=== PATIENT | male | born 1970 | race Caucasian/White ===

== ENCOUNTER 2017-12-13 12:56 | Emergency (ER) | payer OTHER ==
[~2017-12-13] VITALS: Ht 175.3 cm; Wt 92.5 kg
[2017-12-13 13:04] VITALS: TEMP 37.7; Ht 175.3 cm; Wt 92.5 kg
[2017-12-13 13:09] VITALS: O2SAT 97
[2017-12-13] MEDS ORDERED: SODIUM CHLORIDE 0.9% 1000ML 1,000 ML IV STA (13:24)
[2017-12-13] MEDS ORDERED: DiphenhydrAMINE HCL 50 MG/ML VIAL IV STA (13:24)
[2017-12-13] MEDS ORDERED: PROCHLORPERAZINE 5 MG/ML 2 ML VIAL IV STA (13:24)
[2017-12-13] MEDS ORDERED: ACETAMINOPHEN 500 MG TAB PO STA (13:24)
--- NOTE | 2017-12-13 13:26 | EMERGENCY ROOM VISIT NOTE ---
History Report prepared by Tequila: Rossy Tobar Under the Supervision of: Dr. Christ Lake M.D. First contact with patient: 13:07 Chief Complaint: ILLNESS Stated Complaint: FEVER, SOB, SHAKINESS History of Present Illness The patient is a 47 year old white male with a past medical history of seizures who presents to the ED with a cc of an illness beginning at 1100 today. Positive neck pain, headache shortness of breath, nausea. Negative urinary symptoms. The patient reports that he was camping with his family and was getting ready to go for a bike ride when his symptoms came on suddenly. He states that he was unable to stand or talk and that he was cold and shaking. He reports that he does have a history of seizures but that he has not had a seizure in 20 years and that when he does get them he passes out. He denies any recent tick bites or changes in lifestyle. He also denies recent falls or injuries. The patient states that he has a history of a cholecystectomy. He reports that he drinks alcohol and chews tobacco but denies drug use. Source of History: patient Onset: 1100 today Position: other (generalized ) Quality: other (illness) Associated Symptoms: + headache, + neck pain, + SOB, + nausea, No urinary symptoms Review of Systems See HPI for pertinent positives and negatives. A total of ten systems were reviewed and were otherwise negative. Past Medical & Surgical Medical Problems: (1) Seizure Surgical Problems: (1) Hx of cholecystectomy Family History No pertinent family history Social History Smoking Status: Never Smoker Smokeless Tobacco Use: Yes Alcohol Use: occasionally Marital Status: single Current/Historical Medications Scheduled Fluoxetine (Prozac), 1 DOSE PO DAILY Lamotrigine (Lamictal), 150 MG PO DAILY Allergies Coded Allergies: Propofol (Unverified Adverse Reaction, Unknown, HEART RACES, 12/13/17) Physical Exam Vital Signs Date Time Temp Pulse Resp B/P (MAP) Pulse Ox O2 Delivery O2 Flow Rate FiO2 12/13/17 15:30 92 18 102/62 98 12/13/17 13:58 95 19 135/80 94 Room Air 12/13/17 13:34 100 12/13/17 13:09 97 Room Air 12/13/17 13:04 37.7 107 27 147/86 97 Room Air Physical Exam GENERAL: Awake, alert, mildly ill- appearing, NAD HENT: Normocephalic, atraumatic. EYES: Normal conjunctiva. Sclera non-icteric. Mild anisocoria right greater than left. Equally reactive to light. NECK: Supple. No nuchal rigidity. FROM. RESPIRATORY: CTAB, no rhonchi, wheezing, crackles CARDIAC: RRR, no MRG ABDOMEN: Soft, NTND, BS+ MSK: No chest wall TTP, no LE edema, right pericervical tenderness to palpation , full range of motion. Negative kernig's sign. Negative Brudzinski's sign NEURO: CN 2-12 intact, 5/5 upper and lower extremity strength, no dysmetria, no drift, good finger to nose, no sensory deficits. Finger count grossly normal. SKIN: No rash or jaundice noted. Medical Decision & Procedures ER Provider Diagnostic Interpretation: Radiology results as stated below per my review and radiologist interpretation: NONCONTRAST HEAD CT, HEAD CTA HISTORY: Headache. Neck pain. TECHNIQUE: Multiaxial CT images of the head were performed both before and after the intravenous administration of contrast to evaluate the major cerebral vessels. Maximum intensity projection images were also obtained. A dose lowering technique was utilized adhering to the principles of ALARA. COMPARISON: None. FINDINGS: There is no mass, hematoma, midline shift, or acute infarct. Visualized intracranial internal carotid arteries, distal vertebral arteries, and basilar artery are widely patent. There is no significant stenosis, occlusion, or aneurysm seen within the bilateral ACAs, MCAs, or chlorinator operator. The calvarium and skull base are intact. The paranasal sinuses and mastoid air cells are clear. IMPRESSION: No acute intracranial abnormality. No significant stenosis, occlusion, or aneurysm within the [place] of [place]. Electronically signed by: Gerald Mills M.D. 12/13/2017 2:37 PM Dictated Date/Time: 12/13/2017 2:[address], HEAD CTA HISTORY: Headache. Neck pain. TECHNIQUE: Multiaxial CT images of the head were performed both before and after the intravenous administration of contrast to evaluate the major cerebral vessels. Maximum intensity projection images were also obtained. A dose lowering technique was utilized adhering to the principles of ALARA. COMPARISON: None. FINDINGS: There is no mass, hematoma, midline shift, or acute infarct. Visualized intracranial internal carotid arteries, distal vertebral arteries, and basilar artery are widely patent. There is no significant stenosis, occlusion, or aneurysm seen within the bilateral ACAs, MCAs, or chlorinator operator. The calvarium and skull base are intact. The paranasal sinuses and mastoid air cells are clear. IMPRESSION: No acute intracranial abnormality. No significant stenosis, occlusion, or aneurysm within the [place] of [place]. Electronically signed by: Gerald Mills M.D. 12/13/2017 2:37 PM Dictated Date/Time: 12/13/2017 2:29 PM NECK CTA HISTORY: stiff neck, BELL, anisocoria R > L reactive to light TECHNIQUE: Multiaxial CT images of the neck were performed following the intravenous administration of contrast to evaluate the major cervical vessels. Maximum intensity projection images were also obtained. All measurements were calculated based on NASCET criteria. A dose lowering technique was utilized adhering to the principles of ALARA. COMPARISON STUDY: None. FINDINGS: The aortic arch and proximal great vessels are widely patent. There is no significant stenosis, occlusion, or dissection identified within the bilateral common carotid, internal carotid, or vertebral arteries. Moderate to space narrowing at C5-C6 with small endplate osteophytes. There is also mild disc space narrowing at C3-C4. IMPRESSION: No significant stenosis, occlusion, or dissection identified within the carotid or vertebral arteries. Electronically signed by: Gerald Mills M.D. 12/13/2017 2:40 PM Dictated Date/Time: 12/13/2017 2:37 PM Laboratory Results 12/13/17 12:42 Red Blood Count 4.93, Mean Corpuscular Volume 93.5, Mean Corpuscular Hemoglobin 32.7, Mean Corpuscular Hemoglobin Concent 34.9, Mean Platelet Volume 9.4, Neutrophils (%) (Auto) 91.0, Lymphocytes (%) (Auto) 7.9, Monocytes (%) (Auto) 0.2, Eosinophils (%) (Auto) 0.2, Basophils (%) (Auto) 0.2, Neutrophils # (Auto) 5.31, Lymphocytes # (Auto) 0.46, Monocytes # (Auto) 0.01, Eosinophils # (Auto) 0.01, Basophils # (Auto) 0.01 12/13/17 12:42 Test 12/13/17 12:42 12/13/17 13:39 12/13/17 14:45 White Blood Count 5.83 K/uL (4.8-10.8) Red Blood Count 4.93 M/uL (4.7-6.1) Hemoglobin 16.1 g/dL (14.0-18.0) Hematocrit 46.1 % (42-52) Mean Corpuscular Volume 93.5 fL (80-100) Mean Corpuscular Hemoglobin 32.7 pg (25-34) Mean Corpuscular Hemoglobin Concent 34.9 g/dl (32-36) Platelet Count 161 K/uL (130-400) Mean Platelet Volume 9.4 fL (7.4-10.4) Neutrophils (%) (Auto) 91.0 % Lymphocytes (%) (Auto) 7.9 % Monocytes (%) (Auto) 0.2 % Eosinophils (%) (Auto) 0.2 % Basophils (%) (Auto) 0.2 % Neutrophils # (Auto) 5.31 K/uL (1.4-6.5) Lymphocytes # (Auto) 0.46 K/uL (1.2-3.4) Monocytes # (Auto) 0.01 K/uL (0.11-0.59) Eosinophils # (Auto) 0.01 K/uL (0-0.5) Basophils # (Auto) 0.01 K/uL (0-0.2) RDW Standard Deviation 44.0 fL (36.4-46.3) RDW Coefficient of Variation 12.8 % (11.5-14.5) Immature Granulocyte % (Auto) 0.5 % Immature Granulocyte # (Auto) 0.03 K/uL (0.00-0.02) Prothrombin Time 10.4 SECONDS (9.0-12.0) Prothromb Time International Ratio 1.0 (0.9-1.1) Activated Partial Thromboplast Time 24.2 SECONDS (21.0-31.0) Partial Thromboplastin Ratio 0.9 Est Creatinine Clear Calc Drug Dose 79.7 ml/min Estimated GFR () 77.1 Estimated GFR (Non- 66.5 BUN/Creatinine Ratio 6.4 (10-20) Calcium Level 8.2 mg/dl (8.5-10.1) Magnesium Level 1.8 mg/dl (1.8-2.4) Lyme Disease IgG Antibody NEG (NEG) Lyme Disease IgM Antibody NEG (NEG) Bedside Hemoglobin 15.3 g/dl (14.0-18.0) Bedside Hematocrit 45 % (42-52) Bedside Sodium 137 mEq/L (135-144) Bedside Potassium 3.4 mEq/L (3.3-5.0) Bedside Chloride 102 mEq/L (101-112) Bedside Total CO2 16 mEq/l (24-31) Anion Gap 22.0 mmol/L (16-25) Bedside Blood Urea Nitrogen 9 mg/dl (7-18) Bedside Creatinine 1.2 mg/dl (0.6-1.3) Bedside Glucose (other) 108 mg/dl (70-99) Bedside Ionized Calcium ([place]) 1.08 mmol/l (1.12-1.32) Urine Color YELLOW Urine Appearance CLEAR (CLEAR) Urine pH 7.0 (4.5-7.5) Urine Specific [place] 1.017 (1.000-1.030) Urine Protein NEG (NEG) Urine Glucose (UA) NEG (NEG) Urine Ketones NEG (NEG) Urine Occult Blood NEG (NEG) Urine Nitrite NEG (NEG) Urine Bilirubin NEG (NEG) Urine Urobilinogen NEG (NEG) Urine Leukocyte Esterase NEG (NEG) Urine WBC (Auto) 0 /hpf (0-5) Urine RBC (Auto) 0-4 /hpf (0-4) Urine Hyaline Casts (Auto) 0 /lpf (0-5) Urine Epithelial Cells (Auto) 0-5 /lpf (0-5) Urine Bacteria (Auto) NEG (NEG) Laboratory results reviewed by me Medications Administered Medications (Trade) Dose Ordered Sig/Vikas Route Start Time Stop Time Status Last Admin Dose Admin Prochlorperazine Edisylate (Compazine Inj) 10 mg NOW STAT IV 12/13/17 13:24 12/13/17 13:27 DC 12/13/17 14:01 10 MG Acetaminophen (Tylenol Tab) 1,000 mg NOW STAT PO 12/13/17 13:24 12/13/17 13:27 DC 12/13/17 14:01 1,000 MG Diphenhydramine HCl (Benadryl Inj) 50 mg NOW STAT IV 12/13/17 13:24 12/13/17 13:27 DC 12/13/17 14:00 50 MG Sodium Chloride 1,000 ml @ 999 mls/hr Q1H1M STAT IV 12/13/17 13:24 12/13/17 14:24 DC 12/13/17 13:24 999 MLS/HR Sodium Chloride 500 ml @ 999 mls/hr Q31M STAT IV 12/13/17 14:42 12/13/17 15:12 DC 12/13/17 14:52 999 MLS/HR ED Course 1317: The patient was evaluated in room C5. A complete history and physical exam was performed. 1440: I checked on the patient and his symptoms have resolved. 1505: I reevaluated the patient. Discussed results and discharge instructions: He verbalized understanding and agreement. The patient is ready for discharge. Medical Decision Nursing notes reviewed. Ancillary studies and prior records reviewed. The patient is a 47 year old white male with a past medical history of seizures who presents to the ED with a cc of an illness beginning at 1100 today. Differential diagnosis: Etiologies such as migraine headache, meningitis, sinusitis, CO exposure, ICH, SAH, infection, tumor, headache, sinus thrombosis, arterial dissection, as well as others were entertained. Patient was seen and evaluated the bedside. Patient did have some Reiger's as well as feeling like he is in headache and stiff neck. On exam the patient did complain of mild headache but had a nonfocal neurologic exam. Of note though the patient did have some mild anisocoria right greater than left. His pupils were equally reactive to light. The patient did not really have true meningismus. The patient had a negative Brudzinski's and Kernig signs. Patient denies any blood thinning medications and denies any trauma. No recent tick bites with the patient has been camping. Patient did blood work completed along with CT brain, CTA of the head and neck and some medications for symptom control. Of note the patient was reported to have a fever in the ambulance. Patient was given some antipyretics prior to arrival. Patient has not been febrile here. The patient is feeling much improved after his headache treatment. The patient did have a negative CT brain and CT of the head neck. Given this and the relatively short time course I do not believe that the patient lack of meningismus. Less likely bacterial meningitis. Patient was given strict follow-up, discharge, and return precautions. All questions were answered. Patient was deemed suitable for outpatient follow-up at this time. Patient agreed with the plan of care and was safely discharged home. Medication Reconcilliation Current Medication List: was personally reviewed by me Blood Pressure Screening Patient's blood pressure: Elevated blood pressure Blood pressure disposition: Elevated BP felt to be situational Impression Primary Impression: Viral illness Additional Impression: Fever Scribe Attestation The scribe's documentation has been prepared under my direction and personally reviewed by me in its entirety. I confirm that the note above accurately reflects all work, treatment, procedures, and medical decision making performed by me. Departure Information Dispostion Home / Self-Care Forms HOME CARE DOCUMENTATION FORM, IMPORTANT VISIT INFORMATION, WORK / SCHOOL INSTRUCTIONS Patient Instructions ED Fever Control, My [facility] Additional Instructions Please return to the emergency department if you have worsening or recurrent symptoms not amenable to at-home treatment. Please call for a follow-up appointment with her primary care physician. Please take your medications as prescribed. If you have other concerns and/or complaints please feel free to also call your primary care physician's office or return the ED for further evaluation, management, and treatment. You may take 800 mg Ibuprofen every 6 hours as needed for pain/fever with food unless told by your physician not to take NSAIDs. You may take tylenol 1000 mg every 6 hours as needed for pain/fever unless told by your physician to not take it or have liver problems. You may take motrin and tylenol separately or at the same time. Take your medications as prescribed. You have been examined and treated today on an emergency basis only. This is not a substitute for, or an effort to provide, complete comprehensive medical care. It is impossible to recognize and treat all injuries or illnesses in a single emergency department visit. It is therefore important that you follow up closely with [facility], your PCP, and/or your specialist(s). Call as soon as possible for an appointment. Thank you for your time and consideration. I look forward to speaking with you again soon. Please don't hesitate to call us if you have any questions. Problem Qualifiers Additional Impression: Fever Fever type: unspecified Qualified Codes: R50.9 - Fever, unspecified
[2017-12-13 13:40] LABS: BASO % 0.2 %; BASO ABS # 0.01 K/uL (0-0.2); EOS % 0.2 %; EOS ABS # 0.01 K/uL (0-0.5); HEMATOCRIT 46.1 % (42-52); HEMOGLOBIN 16.1 g/dL (14.0-18.0); IG# 0.03 K/uL (0.00-0.02); LYMPH % 7.9 %; LYMPH ABS # 0.46 K/uL (1.2-3.4); MEAN CELL VOLUME 93.5 fL (80-100); MEAN CORPUSCULAR HEMOGLOBIN 32.7 pg (25-34); MEAN CORPUSCULAR HGB CONC 34.9 g/dl (32-36); MEAN PLATELET VOLUME 9.4 fL (7.4-10.4); MONO % 0.2 %; MONO ABS # 0.01 K/uL (0.11-0.59); NEUT ABS # 5.31 K/uL (1.4-6.5); PLATELET COUNT 161 K/uL (130-400); RED CELL DISTRIBUTION WIDTH CV 12.8 % (11.5-14.5); WHITE BLOOD COUNT 5.83 K/uL (4.8-10.8)
[2017-12-13 13:49] LABS: CALCIUM 8.2 mg/dl (8.5-10.1); CREATININE 1.26 mg/dl (0.60-1.40)
[2017-12-13 13:58] LABS: PTT PATIENT 24.2 SECONDS (21.0-31.0)
[2017-12-13] MEDS ORDERED: OPTIRAY 320 IV PRN (14:00)
--- NOTE | 2017-12-13 14:38 | DIAGNOSTIC IMAGING REPORT ---
NONCONTRAST HEAD CT, HEAD CTA HISTORY: Headache. Neck pain. TECHNIQUE: Multiaxial CT images of the head were performed both before and after the intravenous administration of contrast to evaluate the major cerebral vessels. Maximum intensity projection images were also obtained. A dose lowering technique was utilized adhering to the principles of ALARA. COMPARISON: None. FINDINGS: There is no mass, hematoma, midline shift, or acute infarct. Visualized intracranial internal carotid arteries, distal vertebral arteries, and basilar artery are widely patent. There is no significant stenosis, occlusion, or aneurysm seen within the bilateral ACAs, MCAs, or pick pulling machine tender. The calvarium and skull base are intact. The paranasal sinuses and mastoid air cells are clear. IMPRESSION: No acute intracranial abnormality. No significant stenosis, occlusion, or aneurysm within the [place] of [place]. Electronically signed by: Gerald Mills M.D. 12/13/2017 2:37 PM Dictated Date/Time: 12/13/2017 2:29 PM
--- NOTE | 2017-12-13 14:38 | DIAGNOSTIC IMAGING REPORT ---
NONCONTRAST HEAD CT, HEAD CTA HISTORY: Headache. Neck pain. TECHNIQUE: Multiaxial CT images of the head were performed both before and after the intravenous administration of contrast to evaluate the major cerebral vessels. Maximum intensity projection images were also obtained. A dose lowering technique was utilized adhering to the principles of ALARA. COMPARISON: None. FINDINGS: There is no mass, hematoma, midline shift, or acute infarct. Visualized intracranial internal carotid arteries, distal vertebral arteries, and basilar artery are widely patent. There is no significant stenosis, occlusion, or aneurysm seen within the bilateral ACAs, MCAs, or gang mower operator. The calvarium and skull base are intact. The paranasal sinuses and mastoid air cells are clear. IMPRESSION: No acute intracranial abnormality. No significant stenosis, occlusion, or aneurysm within the [place]. Electronically signed by: Gerald Mills M.D. 12/13/2017 2:37 PM Dictated Date/Time: 12/13/2017 2:29 PM
[2017-12-13] MEDS ORDERED: FLUO20CA35 PO (14:39)
[2017-12-13] MEDS ORDERED: LMC/150 PO (14:39)
[2017-12-13] MEDS ORDERED: SODIUM CHLORIDE 0.9% 500ML 500 ML IV STA (14:42)
--- NOTE | 2017-12-13 14:42 | DIAGNOSTIC IMAGING REPORT ---
NECK CTA HISTORY: stiff neck, BELL, anisocoria R > L reactive to light TECHNIQUE: Multiaxial CT images of the neck were performed following the intravenous administration of contrast to evaluate the major cervical vessels. Maximum intensity projection images were also obtained. All measurements were calculated based on NASCET criteria. A dose lowering technique was utilized adhering to the principles of ALARA. COMPARISON STUDY: None. FINDINGS: The aortic arch and proximal great vessels are widely patent. There is no significant stenosis, occlusion, or dissection identified within the bilateral common carotid, internal carotid, or vertebral arteries. Moderate to space narrowing at C5-C6 with small endplate osteophytes. There is also mild disc space narrowing at C3-C4. IMPRESSION: No significant stenosis, occlusion, or dissection identified within the carotid or vertebral arteries. Electronically signed by: Gerald Mills M.D. 12/13/2017 2:40 PM Dictated Date/Time: 12/13/2017 2:37 PM
[2017-12-13 15:30] VITALS: BP 102/62; PULSE 92; O2SAT 98
[2017-12-13 15:45] LABS: ISTAT CREATININE 1.2 mg/dl (0.6-1.3); ISTAT IONIZED CALCIUM 1.08 mmol/l (1.12-1.32); ISTAT POTASSIUM 3.4 mEq/L (3.3-5.0)
== END 2017-12-13 15:30 | disposition home or self-care (01) ==
LOC: EDBD 12:56 → C.EDC 12:57
DX: B34.9 Viral infection, unspecified (principal); R50.9 Fever, unspecified; Z79.899 Other long term (current) drug therapy; Z88.8 Allergy status to other drugs, medicaments and biological substances